=== PATIENT | female | born 1945 | race Caucasian/White ===

== ENCOUNTER → 2016-03-24 | Outpatient (REF) | LOC: ZLAB.WCH 14:42 | DX: Z01.89 Encounter for other specified special examinations (principal) ==

== ENCOUNTER → 2016-07-22 | Outpatient (CLI) | payer MEDICARE, OTHER | LOC: COL.RAD 08:39 | DX: M51.34 Other intervertebral disc degeneration, thoracic region (principal); M48.04 Spinal stenosis, thoracic region; M43.15 Spondylolisthesis, thoracolumbar region; M41.86 Other forms of scoliosis, lumbar region; M51.36 Other intervertebral disc degeneration, lumbar region; M47.816 Spondylosis without myelopathy or radiculopathy, lumbar region; M48.06 Spinal stenosis, lumbar region ==

== ENCOUNTER → 2016-08-26 | Outpatient (CLI) | payer MEDICARE, OTHER | LOC: MHCPAIN 11:20 | DX: G89.29 Other chronic pain (principal); M47.817 Spondylosis without myelopathy or radiculopathy, lumbosacral region; M54.16 Radiculopathy, lumbar region; M53.3 Sacrococcygeal disorders, not elsewhere classified; F17.210 Nicotine dependence, cigarettes, uncomplicated | CPT/HCPCS: G0463 ==

== ENCOUNTER → 2017-05-03 | Outpatient (REF) | LOC: ZLAB.WCH 18:00 | DX: Z01.89 Encounter for other specified special examinations (principal) ==

== ENCOUNTER → 2020-01-16 | Outpatient (CLI) | payer MEDICARE, OTHER | LOC: MHCPAIN 09:46 | DX: M47.812 Spondylosis without myelopathy or radiculopathy, cervical region (principal); M54.12 Radiculopathy, cervical region; G89.29 Other chronic pain; M47.817 Spondylosis without myelopathy or radiculopathy, lumbosacral region; M54.5 Low back pain | CPT/HCPCS: G0463 ==

== ENCOUNTER 2020-01-26 14:47 | Outpatient (CLI) | payer MEDICARE, OTHER ==
[~2020-01-26] VITALS: Ht 152.4 cm; Wt 53.1 kg
[2020-01-26 15:46] VITALS: BP 130/89; PULSE 72; TEMP 97.7
--- NOTE | 2020-01-26 17:19 | NUR ---
Pt remained in [place] for 1 hr following injections of evenity without issue. She tolerates injection well, and has no complaints at time of discharge. She is escorted out to admissions entrance.
[2020-01-26] MEDS ORDERED: BETOPTIC S OU (17:34)
[2020-01-26] MEDS ORDERED: ASPIRIN 32325 MG/TAB PO (17:34)
[2020-01-26] MEDS ORDERED: VITAMINC1000TA PO (17:34)
[2020-01-26] MEDS ORDERED: CRANBERRY250 MG PO (17:35)
[2020-01-26] MEDS ORDERED: VOLTAREN GEL 1%1 TU TP (17:35)
[2020-01-26] MEDS ORDERED: MASON NATURAL2000 IU PO (17:35)
[2020-01-26] MEDS ORDERED: ESTRACE0.1 MG/GM VG (17:36)
[2020-01-26] MEDS ORDERED: MOTRIN 800800 MG/TAB PO (17:37)
[2020-01-26] MEDS ORDERED: DIFLUCAN150 MG PO (17:37)
[2020-01-26] MEDS ORDERED: LIDODERM 5% PATC1 EA TP (17:37)
[2020-01-26] MEDS ORDERED: EVENITY (2210 MG/2.3 SQ (17:38)
[2020-01-26] MEDS ORDERED: MIRALAX PA17 GM/Dose PO (17:38)
[2020-01-26] MEDS ORDERED: ZESTRIL 5MG5 MG PO (17:38)
[2020-01-26] MEDS ORDERED: ZOCOR 40MG40 MG PO (17:39)
[2020-01-26] MEDS ORDERED: SENNA-LAX8.6 MG PO (17:39)
== END 2020-01-26 17:40 | disposition home or self-care (01) ==
LOC: EUO 14:47
DX: M81.0 Age-related osteoporosis without current pathological fracture (principal)
CPT/HCPCS: J3111

== ENCOUNTER 2020-02-26 15:04 | Outpatient (RCR) | payer MEDICARE, OTHER ==
[~2020-02-26] VITALS: Ht 152.4 cm; Wt 52.9 kg
[~2020-02-26 15:04] MED LIST: ASPIRIN 32325 MG/TAB PO; BETOPTIC S OU; CRANBERRY250 MG PO; DIFLUCAN150 MG PO; ESTRACE0.1 MG/GM VG; EVENITY (2210 MG/2.3 SQ; LIDODERM 5% PATC1 EA TP; MASON NATURAL2000 IU PO; MIRALAX PA17 GM/Dose PO; MOTRIN 800800 MG/TAB PO; SENNA-LAX8.6 MG PO; VITAMINC1000TA PO; VOLTAREN GEL 1%1 TU TP; ZESTRIL 5MG5 MG PO; ZOCOR 40MG40 MG PO
[2020-02-26 15:28] VITALS: BP 149/84; PULSE 70; TEMP 98.3
== END 2020-02-26 16:02 ==
LOC: EUO 15:04
DX: M81.0 Age-related osteoporosis without current pathological fracture (principal)
CPT/HCPCS: J3111

== ENCOUNTER 2020-04-26 14:11 | Outpatient (CLI) | payer MEDICARE, OTHER ==
[~2020-04-26] VITALS: Ht 152.4 cm; Wt 49.2 kg
[2020-04-26 15:17] VITALS: BP 112/64; PULSE 70; TEMP 98.2
== END 2020-05-07 07:58 | disposition home or self-care (01) ==
LOC: EUO 14:11 → EDSTATUS 15:00 → EUO 05-07 07:58
DX: M81.0 Age-related osteoporosis without current pathological fracture (principal); Z79.899 Other long term (current) drug therapy
CPT/HCPCS: J3111

== ENCOUNTER 2020-05-27 13:39 | Outpatient (CLI) | payer MEDICARE, OTHER ==
[~2020-05-27] VITALS: Ht 152.4 cm; Wt 49.5 kg
[2020-05-27 14:17] VITALS: BP 131/75; PULSE 78; TEMP 98.3
== END 2020-05-27 15:30 | disposition home or self-care (01) ==
LOC: EUO 13:39 → EDSTATUS 14:00 → EUO 14:00
DX: M81.0 Age-related osteoporosis without current pathological fracture (principal)
CPT/HCPCS: J3111

== ENCOUNTER 2020-06-24 13:36 | Outpatient (CLI) | payer MEDICARE, OTHER ==
[~2020-06-24] VITALS: Ht 152.4 cm; Wt 49.2 kg
[2020-06-24 14:32] VITALS: BP 116/76; PULSE 69; TEMP 98
== END 2020-06-24 21:09 | disposition home or self-care (01) ==
LOC: EUO 13:36 → EDSTATUS 14:00 → EUO 14:00
DX: M81.0 Age-related osteoporosis without current pathological fracture (principal)
CPT/HCPCS: J3111

== ENCOUNTER 2020-07-23 13:34 | Outpatient (RCR) | payer MEDICARE, OTHER ==
[~2020-07-23] VITALS: Ht 152.4 cm; Wt 51.1 kg
[2020-07-23 14:26] VITALS: BP 106/61; PULSE 67; TEMP 98.3
[2020-07-23] MEDS ORDERED: SENNA-LAX8.6 MG PO (15:13)
== END 2020-07-23 15:14 | disposition home or self-care (01) ==
LOC: EUO 13:34
DX: M81.0 Age-related osteoporosis without current pathological fracture (principal)
CPT/HCPCS: J3111

== ENCOUNTER 2020-08-22 13:54 | Outpatient (RCR) | payer MEDICARE, OTHER ==
[~2020-08-22] VITALS: Ht 152.4 cm; Wt 50.4 kg
[2020-08-22 14:25] VITALS: BP 112/73; PULSE 74; TEMP 97.4
== END 2020-09-20 15:08 | disposition home or self-care (01) ==
LOC: EUO 13:54
DX: M81.0 Age-related osteoporosis without current pathological fracture (principal)
CPT/HCPCS: J3111

== ENCOUNTER 2020-09-20 13:38 | Outpatient (RCR) | payer MEDICARE, OTHER ==
[~2020-09-20] VITALS: Ht 152.4 cm; Wt 49.4 kg
[2020-09-20 14:37] VITALS: BP 97/66; PULSE 74; TEMP 98.5
== END 2020-09-20 15:08 | disposition home or self-care (01) ==
LOC: EUO 13:38
DX: M81.0 Age-related osteoporosis without current pathological fracture (principal); Z79.899 Other long term (current) drug therapy
CPT/HCPCS: J3111

== ENCOUNTER 2020-10-18 13:40 | Outpatient (CLI) | payer MEDICARE, OTHER ==
[~2020-10-18] VITALS: Ht 152.4 cm; Wt 50.3 kg
[2020-10-18 14:25] VITALS: BP 115/59; PULSE 69; TEMP 98
== END 2020-10-18 15:05 | disposition home or self-care (01) ==
LOC: EUO 13:40
DX: M81.0 Age-related osteoporosis without current pathological fracture (principal)
CPT/HCPCS: J3111

== ENCOUNTER 2020-11-18 13:31 | Outpatient (RCR) | payer MEDICARE, OTHER ==
[~2020-11-18] VITALS: Ht 152.4 cm; Wt 48.8 kg
[2020-11-18 14:04] VITALS: BP 133/77; PULSE 78; TEMP 98
== END 2020-11-18 14:33 | disposition home or self-care (01) ==
LOC: EUO 13:31
DX: M81.0 Age-related osteoporosis without current pathological fracture (principal); Z79.899 Other long term (current) drug therapy
CPT/HCPCS: J3111

== ENCOUNTER 2020-12-18 13:45 | Outpatient (RCR) | payer MEDICARE, OTHER ==
[~2020-12-18] VITALS: Ht 152.4 cm; Wt 52.5 kg
[2020-12-18 14:31] VITALS: BP 161/75; PULSE 77; TEMP 98.2
== END 2020-12-18 17:38 ==
LOC: EUO 13:45
DX: M81.0 Age-related osteoporosis without current pathological fracture (principal)
CPT/HCPCS: J3111

== ENCOUNTER 2021-01-17 14:25 | Outpatient (CLI) | payer MEDICARE, OTHER ==
[~2021-01-17] VITALS: Ht 152.4 cm; Wt 52.5 kg
[2021-01-17 14:59] VITALS: BP 131/81; PULSE 75; TEMP 98.6
== END 2021-01-17 15:55 | disposition home or self-care (01) ==
LOC: EUO 14:25
DX: M81.0 Age-related osteoporosis without current pathological fracture (principal)
CPT/HCPCS: J3489